=== PATIENT | male | born 1965 | race Caucasian/White ===

== ENCOUNTER 2022-01-03 14:27 | Outpatient (CLI) | payer OTHER | END 2022-01-03 16:00 | disposition home or self-care (01) | LOC: RAD 14:27 | DX: J20.5 Acute bronchitis due to respiratory syncytial virus (principal) ==

== ENCOUNTER 2023-01-29 09:37 | Outpatient (CLI) | payer OTHER | END 2023-01-29 09:46 | disposition home or self-care (01) | LOC: RAD 09:37 | PROVIDERS: ATTEND Orthopaedic Surgery | DX: M25.511 Pain in right shoulder (principal) ==

== ENCOUNTER 2023-04-08 10:58 | Outpatient (CLI) | payer OTHER | END 2023-04-08 11:09 | disposition home or self-care (01) | LOC: RAD 10:58 | PROVIDERS: ATTEND Orthopaedic Surgery | DX: M25.521 Pain in right elbow (principal); M25.572 Pain in left ankle and joints of left foot; M79.672 Pain in left foot ==

== ENCOUNTER 2023-05-19 10:30 | Outpatient (CLI) | payer OTHER | END 2023-05-19 10:35 | disposition home or self-care (01) | LOC: RAD 10:30 | PROVIDERS: ATTEND Orthopaedic Surgery | DX: R07.89 Other chest pain (principal) ==